=== PATIENT | female | born 1935 | race Hispanic/Latino ===

== ENCOUNTER → 2018-05-03 | Outpatient (CLI) | payer MEDICARE ==
[~2018-05-03] MED LIST: ALENDRONATE SOD70 MG PO; ENALAPRIL MALEA20 MG PO; GABAPENTIN100 MG PO; GLYBURIDE-METF1 EAC1 PO; PANTOPRAZOLE SO40 MG PO; PIOGLITAZONE15 MG PO; SIMVASTATIN20 MG PO
--- NOTE | 2018-05-03 13:01 | Diagnostic Imaging Report ---
EXAMINATION: CHEST 2 VIEWS INDICATION: Cough COMPARISON: Chest radiograph 06/24/2015. FINDINGS: TUBES and LINES: None. LUNGS: Lungs are well inflated. Mild patchy right basilar opacity. No evidence of pulmonary edema. A rounded high density opacity projecting over the right lower lung likely represents overlying rib. PLEURA: No pleural effusion or pneumothorax. HEART AND MEDIASTINUM: Cardiac size is mildly enlarged. There are atherosclerotic calcifications within the aorta. BONES AND SOFT TISSUES: There are degenerative changes in the thoracic spine. UPPER ABDOMEN: No free air under the diaphragm. There are cholecystectomy clips. IMPRESSION: Mild patchy right basilar opacity, which could reflect atelectasis or pneumonia in the appropriate clinical setting. Follow chest radiograph in 6-8 weeks is suggested to assess for resolution. Signed by: Dr. Alyse Ramirez MD on 05/03/2018 1:07 PM
--- NOTE | 2018-05-03 13:09 | Diagnostic Imaging Report ---
EXAM: Bilateral two view radiographs of the hips. INDICATION: Bilateral hip pain COMPARISON: None FINDINGS: No evidence of fracture, malalignment, or soft tissue abnormality. There is diffuse osteopenia. There are moderate left and mild right hip degenerative changes with joint space narrowing and bony osteophyte formation. Mild enthesopathic changes at the left greater trochanter. There are atherosclerotic vascular calcifications. IMPRESSION: No acute osseous abnormality. 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 Signed by: Dr. Alyse Ramirez MD on 05/03/2018 1:05 PM
== END ==
LOC: RAD 11:50
DX: R05 Cough (principal); M25.552 Pain in left hip; M25.551 Pain in right hip
CPT/HCPCS: 71046; 73521

== ENCOUNTER → 2018-05-13 | Outpatient (CLI) | payer MEDICARE ==
--- NOTE | 2018-05-13 14:55 | Diagnostic Imaging Report ---
EXAMINATION: CHEST 2 VIEWS INDICATION: \S\ABNORMAL CHEST XRAY. Fluid in the chest was discovered at doctor's appointment 10 days ago. Congestion. COMPARISON: Chest x-ray 05/03/2018. 06/24/2015. CT abdomen pelvis 11/02/2015. FINDINGS: PA and lateral views TUBES and LINES: None. LUNGS: Lungs are well inflated. Improving bibasilar atelectasis. There still residual airspace opacities in both lung bases. PLEURA: No pleural effusion or pneumothorax. HEART AND MEDIASTINUM: The cardiomediastinal silhouette is unremarkable. BONES AND SOFT TISSUES: No acute osseous lesion. Soft tissues are unremarkable. UPPER ABDOMEN: No free air under the diaphragm. There are cholecystectomy clips. IMPRESSION: Improving bibasilar atelectasis. There are several residual airspace opacities in the lung bases, worrisome for residual atelectasis or pneumonia. Recommend follow-up chest x-ray in 6 -8 weeks. Signed by: Dr. Renard De Paz M.D. on 05/13/2018 2:52 PM
== END ==
LOC: RAD 13:56
DX: R91.8 Other nonspecific abnormal finding of lung field (principal)
CPT/HCPCS: 71046

== ENCOUNTER → 2018-06-21 | Outpatient (CLI) | payer MEDICARE ==
--- NOTE | 2018-06-21 12:03 | Diagnostic Imaging Report ---
EXAMINATION: PA and lateral views of the chest. COMPARISON: May 13, 2018 CLINICAL HISTORY: Follow-up pleural effusion DISCUSSION: Lines/tubes: None. Lungs: The lungs are well inflated. Age-related interstitial change.. No pneumonia or pulmonary edema. Pleura: No pleural effusion or pneumothorax. Heart and mediastinum: The cardiomediastinal silhouette is normal. Bones and soft tissues: No acute bony abnormalities. Remote healed left-sided rib fractures. IMPRESSION: No acute cardiopulmonary abnormalities. Signed by: Dr. Regan Ovalle M.D. on 06/21/2018 11:59 AM
== END ==
LOC: RAD 10:56
DX: J90 Pleural effusion, not elsewhere classified (principal)
CPT/HCPCS: 71046

== ENCOUNTER → 2020-06-01 | Outpatient (CLI) | payer MEDICARE ==
--- NOTE | 2020-06-01 13:45 | Diagnostic Imaging Report ---
Radiographs of the right knee 3 views HISTORY: Pain COMPARISON: None available. FINDINGS: Bones: No acute displaced fracture. Osseous alignment is within normal limits. Joints: Mild tricompartmental degenerative arthrosis. Soft tissues: Soft tissue swelling. Scattered vascular calcification. 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 Signed by: Dr. Trev Ramesh M.D. on 06/01/2020 1:42 PM
== END ==
LOC: RAD 12:59
DX: M25.561 Pain in right knee (principal); W19.XXXA Unspecified fall, initial encounter

== ENCOUNTER 2020-10-26 10:34 | Emergency (ER) | payer MEDICARE ==
[~2020-10-26] VITALS: Ht 157.5 cm; Wt 79.4 kg
[2020-10-26 13:03] VITALS: BP 136/72
== END 2020-10-26 12:50 | disposition home or self-care (01) ==
LOC: ER 11:33
DX: S01.01XA Laceration without foreign body of scalp, initial encounter (principal); W01.0XXA Fall on same level from slipping, tripping and stumbling without subsequent striking against object, initial encounter; Y93.01 Activity, walking, marching and hiking; I10 Essential (primary) hypertension; E11.9 Type 2 diabetes mellitus without complications; E78.5 Hyperlipidemia, unspecified
CPT/HCPCS: 70450; 72125; 99283

== ENCOUNTER → 2021-04-22 | Outpatient (CLI) | payer MEDICARE ==
[~2021-04-22] MED LIST changes: +ALBUTEROL SULF 0.083% NEB SOLN 3 ML NEB ONE
== END ==
LOC: RESP 09:38
PROVIDERS: ATTEND Internal Medicine Critical Care Medicine
DX: R09.02 Hypoxemia (principal); R06.02 Shortness of breath; J18.9 Pneumonia, unspecified organism; G47.33 Obstructive sleep apnea (adult) (pediatric); I10 Essential (primary) hypertension; K21.9 Gastro-esophageal reflux disease without esophagitis; J30.2 Other seasonal allergic rhinitis
CPT/HCPCS: 94060; 94640; 94727; 94729

== ENCOUNTER → 2021-05-04 | Outpatient (CLI) | payer MEDICARE ==
[~2021-05-04] MED LIST changes: -ALBUTEROL SULF 0.083% NEB SOLN 3 ML NEB ONE
== END ==
LOC: CT 14:01
PROVIDERS: ATTEND Internal Medicine Critical Care Medicine
DX: R09.02 Hypoxemia (principal); J18.9 Pneumonia, unspecified organism; R06.02 Shortness of breath; G47.33 Obstructive sleep apnea (adult) (pediatric); I10 Essential (primary) hypertension; K21.9 Gastro-esophageal reflux disease without esophagitis; J30.2 Other seasonal allergic rhinitis
CPT/HCPCS: 71250

== ENCOUNTER → 2021-11-02 | Outpatient (CLI) | payer MEDICARE | LOC: MRI 10:31 | DX: M54.40 Lumbago with sciatica, unspecified side (principal); M81.8 Other osteoporosis without current pathological fracture | CPT/HCPCS: 72148; 77080 ==

== ENCOUNTER → 2022-01-03 | Outpatient (CLI) | payer MEDICARE | LOC: US 14:23 | PROVIDERS: ATTEND Internal Medicine Nephrology | DX: N18.31 Chronic kidney disease, stage 3a (principal) | CPT/HCPCS: 76770; 76857 ==

== ENCOUNTER 2022-04-21 19:01 | Emergency (ER) | payer MEDICARE ==
[~2022-04-21] VITALS: Ht 157.5 cm; Wt 79.4 kg
[2022-04-21 21:27] LABS: CLARITY,URINE CLEAR (CLEAR); COLOR,URINE YELLOW (YELLOW); KETONES,URINE NEGATIVE (NEGATIVE); LEUKOCYTE ESTERASE ,URINE SMALL (NEGATIVE); NITRITE,URINE NEGATIVE (NEGATIVE); PROTEIN,URINE DIPSTICK 2+ (NEGATIVE); URINE UROBILINOGEN 0.2 mg/dL (0.2 - 1)
[2022-04-21 21:54] LABS: BACTERIA,URINE MANY /HPF; EPITHELIAL CELLS,URINE FEW /LPF; RBC,URINE 0-5 /HPF (0-5)
[2022-04-21 21:55] LABS: RENAL EPITHELIAL CELLS,URINE RARE
[2022-04-21 22:09] VITALS: BP 146/70
[2022-04-21] MEDS ORDERED: CEFDINIR300 MG PO (22:10)
== END 2022-04-21 22:13 | disposition home or self-care (01) ==
LOC: ER 19:14
DX: R30.0 Dysuria (principal); N39.0 Urinary tract infection, site not specified; R10.30 Lower abdominal pain, unspecified; I12.9 Hypertensive chronic kidney disease with stage 1 through stage 4 chronic kidney disease, or unspecified chronic kidney disease; E11.22 Type 2 diabetes mellitus with diabetic chronic kidney disease; N18.9 Chronic kidney disease, unspecified; E78.5 Hyperlipidemia, unspecified; M81.8 Other osteoporosis without current pathological fracture
CPT/HCPCS: 81001; 99283

== ENCOUNTER 2022-06-23 14:43 | Inpatient (IN) | payer MEDICARE ==
[~2022-06-23] VITALS: Ht 157.5 cm; Wt 79.4 kg
[~2022-06-23 14:43] MED LIST changes: +CEFDINIR300 MG PO
[2022-06-23 15:22] LABS: BASOPHILS % 0.5 % (0.0-1.0); EOSINOPHILS % 0.4 % (0.0-6.0); HEMATOCRIT 35.8 % (34.2-44.1); HEMOGLOBIN 11.1 g/dL (12.0-16.0); LYMPHOCYTES # (AUTO) 1.8 (1.0-3.2); LYMPHOCYTES % 21.5 % (18.0-39.1); MEAN CORPUSCULAR HEMOGLOBIN 30.7 pg (28-32); MEAN CORPUSCULAR VOLUME 98.9 fL (81-99); MONOCYTES # (AUTO) 0.8 (0.2-0.8); MONOCYTES % 9.2 % (4.4-11.3); NEUTROPHILS # (AUTO) 5.6 (2.1-6.9); NEUTROPHILS % 68.3 % (38.7-80.0); PLATELET COUNT 170 x10e3/uL (140-360); RED BLOOD COUNT 3.62 x10e6/uL (3.6-5.1); RED CELL DISTRIBUTION WIDTH 13.5 % (11.7-14.4)
[2022-06-23] MEDS ORDERED: Vancomycin IV 1 GM in SODIUM CHLORIDE 0.9% 250ML 250 ML IV ONE (15:30)
[2022-06-23 15:40] LABS: ALBUMIN 3.2 g/dL (3.5-5.0); ALBUMIN/GLOBULIN RATIO 0.8 (0.8-2.0); ANION GAP 14.7 mmol/L (8-16); CALCIUM 8.2 mg/dL (8.4-10.2); CREATININE, SERUM 1.29 mg/dL (0.57-1.11); POTASSIUM 4.7 mmol/L (3.5-5.1)
[2022-06-23 16:01] LABS: CREATINE KINASE MB 1.6 ng/mL (0-5.0)
[2022-06-23] MEDS ORDERED: FUROSEMIDE INJ 10 MG/ML 4 ML VIAL IV ONE (17:15)
[2022-06-23] MEDS: ALBUTEROL SULF 0.083% NEB SOLN 3 ML NEB NEB SCH ×2 (17:36→23:05)
[2022-06-23 17:49] LABS: CLARITY,URINE CLEAR (CLEAR); COLOR,URINE YELLOW (YELLOW); KETONES,URINE NEGATIVE (NEGATIVE); LEUKOCYTE ESTERASE ,URINE NEGATIVE (NEGATIVE); NITRITE,URINE NEGATIVE (NEGATIVE); PROTEIN,URINE DIPSTICK 2+ (NEGATIVE); URINE UROBILINOGEN 0.2 mg/dL (0.2 - 1)
[2022-06-23] MEDS: OSELTAMIVIR PHOSPHATE 75 MG CAP PO SCH (17:52)
[2022-06-23 18:04] LABS: RBC,URINE 0-5 /HPF (0-5); WBC,URINE (MAN) 0-5 /HPF (0-5)
[2022-06-23 18:05] LABS: BACTERIA,URINE RARE /HPF; EPITHELIAL CELLS,URINE FEW /LPF
[2022-06-23 20:00] VITALS: BP 120/47
[2022-06-23 20:02] VITALS: BP 120/47
[2022-06-23 20:05] VITALS: BP 120/47
[2022-06-23] MEDS ORDERED: METOPROLOL TART25 MG PO (20:58)
[2022-06-23] MEDS ORDERED: TRESIBA100 UNIT/1 (20:58)
[2022-06-23] MEDS ORDERED: GLIMEPIRIDE2 MG PO (20:58)
[2022-06-23] MEDS ORDERED: AMLODIPINE BESY10 MG PO (20:58)
[2022-06-24] VITALS (7 sets, daily range): BP systolic 104–150; BP diastolic 40–54
[2022-06-24] MEDS: ALBUTEROL SULF 0.083% NEB SOLN 3 ML NEB NEB SCH ×5 (03:10→19:20)
[2022-06-24 06:43] LABS: BASOPHILS % 0.5 % (0.0-1.0); EOSINOPHILS # (AUTO) 0.1 (0.0-0.4); EOSINOPHILS % 1.4 % (0.0-6.0); HEMATOCRIT 34.4 % (34.2-44.1); LYMPHOCYTES # (AUTO) 1.7 (1.0-3.2); LYMPHOCYTES % 20.5 % (18.0-39.1); MEAN CORPUSCULAR HEMOGLOBIN 30.8 pg (28-32); MEAN CORPUSCULAR VOLUME 96.4 fL (81-99); MONOCYTES # (AUTO) 0.8 (0.2-0.8); MONOCYTES % 9.4 % (4.4-11.3); NEUTROPHILS # (AUTO) 5.7 (2.1-6.9); PLATELET COUNT 163 x10e3/uL (140-360); RED BLOOD COUNT 3.57 x10e6/uL (3.6-5.1); RED CELL DISTRIBUTION WIDTH 13.4 % (11.7-14.4)
[2022-06-24 07:11] LABS: ALBUMIN/GLOBULIN RATIO 0.8 (0.8-2.0); ANION GAP 15.5 mmol/L (8-16); CALCIUM 8.1 mg/dL (8.4-10.2); CREATININE, SERUM 1.31 mg/dL (0.57-1.11); POTASSIUM 4.5 mmol/L (3.5-5.1)
[2022-06-24] MEDS ORDERED: ACTOS15 MG PO (07:45)
[2022-06-24] MEDS ORDERED: AMLODIPINE BESY10 MG PO (07:45)
[2022-06-24] MEDS ORDERED: TRELEGY ELLIPT1 EACH PO (07:45)
[2022-06-24] MEDS ORDERED: RENA-VITE RX T1 EACH PO (07:45)
[2022-06-24] MEDS ORDERED: SIMVASTATIN40 MG PO (07:56)
[2022-06-24] MEDS ORDERED: GLIMEPIRIDE2 MG PO (07:56)
[2022-06-24] MEDS ORDERED: ENALAPRIL MALEA20 MG PO (07:56)
[2022-06-24] MEDS ORDERED: CALCIUM CARBON500 MG PO (07:56)
[2022-06-24] MEDS ORDERED: LASIX20 MG PO (07:56)
[2022-06-24] MEDS ORDERED: [UNRECOGNIZED DRUG - OTHER] PO (07:56)
[2022-06-24] MEDS ORDERED: METOPROLOL TART25 MG PO (07:56)
[2022-06-24] MEDS ORDERED: POLYETHYLENE GLYCOL 3350 17 GM PACK PO PRN (08:45)
[2022-06-24] MEDS ORDERED: ACETAMINOPHEN 325 MG TAB PO PRN (08:45)
[2022-06-24] MEDS ORDERED: HYDRALAZINE HCL 20 MG/ML VIAL IV PRN (08:45)
[2022-06-24] MEDS: OSELTAMIVIR PHOSPHATE 75 MG CAP PO SCH ×2 (08:46→17:33)
[2022-06-24] MEDS ORDERED: NON-FORMULARY MEDICATION (Fluticasone/Umeclidin/Vilanter (Trelegy Ellipta 100-62.5-25) 1 I PO SCH (09:00)
[2022-06-24] MEDS ORDERED: METFORMIN HCL PO SCH (09:00)
[2022-06-24] MEDS ORDERED: NON-FORMULARY MEDICATION (Vit B Cmplx 3/Fa/Vit C/Biotin (Rena-Vite Rx Tablet) 1 TAB) PO SCH (09:00)
[2022-06-24] MEDS ORDERED: ENALAPRIL MALEATE 10 MG PO SCH (09:00)
[2022-06-24] MEDS ORDERED: GLYBURIDE PO SCH (09:00)
[2022-06-24] MEDS: OYST-CAL-D 500MG TABLET PO SCH (09:41)
[2022-06-24] MEDS: METOPROLOL TARTRATE 25 MG TAB PO SCH ×2 (09:46→17:33)
[2022-06-24] MEDS: DOCUSATE SODIUM 100 MG CAP PO SCH ×2 (09:47→17:31)
[2022-06-24] MEDS: GUAIFENESIN 600MG/DEXTROMETHORPHAN 30MG TABSR PO SCH ×2 (09:47→17:31)
[2022-06-24] MEDS: AMLODIPINE BESYLATE 10 MG TAB PO SCH (09:47)
[2022-06-24] MEDS: FAMOTIDINE 20 MG TAB PO SCH ×2 (09:49→17:31)
[2022-06-24] MEDS: GLIMEPIRIDE 2 MG TAB PO SCH ×2 (13:42→17:31)
[2022-06-24 15:06] LABS: CREATINE KINASE MB 1.8 ng/mL (0-5.0)
[2022-06-24] MEDS: SIMVASTATIN 40 MG TAB PO SCH (21:24)
[2022-06-25] VITALS: BP 117/40
[2022-06-25] MEDS: ALBUTEROL SULF 0.083% NEB SOLN 3 ML NEB NEB SCH ×6 (03:10→19:05)
[2022-06-25 04:00] VITALS: BP 122/38
[2022-06-25 06:05] LABS: BASOPHILS % 0.5 % (0.0-1.0); EOSINOPHILS # (AUTO) 0.2 (0.0-0.4); EOSINOPHILS % 2.9 % (0.0-6.0); HEMATOCRIT 32.2 % (34.2-44.1); HEMOGLOBIN 10.4 g/dL (12.0-16.0); LYMPHOCYTES # (AUTO) 2.3 (1.0-3.2); LYMPHOCYTES % 40.2 % (18.0-39.1); MEAN CORPUSCULAR HEMOGLOBIN 30.8 pg (28-32); MEAN CORPUSCULAR HGB CONC 32.3 g/dL (31-35); MEAN CORPUSCULAR VOLUME 95.3 fL (81-99); MONOCYTES # (AUTO) 0.5 (0.2-0.8); MONOCYTES % 9.2 % (4.4-11.3); NEUTROPHILS # (AUTO) 2.7 (2.1-6.9); NEUTROPHILS % 46.7 % (38.7-80.0); PLATELET COUNT 157 x10e3/uL (140-360); RED BLOOD COUNT 3.38 x10e6/uL (3.6-5.1); RED CELL DISTRIBUTION WIDTH 13.3 % (11.7-14.4)
[2022-06-25 06:27] LABS: CREATINE KINASE MB 1.9 ng/mL (0-5.0)
[2022-06-25] MEDS: TRELEGY ELLIPTA PO SCH (06:47)
[2022-06-25 06:56] LABS: ALBUMIN 2.8 g/dL (3.5-5.0); ALBUMIN/GLOBULIN RATIO 0.8 (0.8-2.0); ANION GAP 16.3 mmol/L (8-16); CALCIUM 7.7 mg/dL (8.4-10.2); CHOL/HDL RATIO 3.3 (3.0-3.6); CREATININE, SERUM 1.96 mg/dL (0.57-1.11); MAGNESIUM 1.9 MG/DL (1.3-2.1); PHOSPHORUS 5.3 MG/DL (2.3-4.7); POTASSIUM 4.3 mmol/L (3.5-5.1)
[2022-06-25 07:16] LABS: THYROID STIMULATING HORMONE 2.401 uIU/mL (0.350-4.940)
[2022-06-25 08:00] VITALS: BP 122/38
[2022-06-25] MEDS: MEROPENEM 1 GM in SODIUM CHLORIDE 0.9% 100 ML IV SCH (08:30)
[2022-06-25] MEDS: FAMOTIDINE 20 MG TAB PO SCH ×2 (08:32→18:47)
[2022-06-25] MEDS: GLIMEPIRIDE 2 MG TAB PO SCH ×2 (08:32→18:49)
[2022-06-25] MEDS: ENALAPRIL MALEATE 10 MG TAB PO SCH (08:33)
[2022-06-25] MEDS: OSELTAMIVIR PHOSPHATE 75 MG CAP PO SCH ×2 (08:35→18:48)
[2022-06-25] MEDS: METOPROLOL TARTRATE 25 MG TAB PO SCH ×2 (08:35→18:48)
[2022-06-25] MEDS: GUAIFENESIN 600MG/DEXTROMETHORPHAN 30MG TABSR PO SCH ×2 (08:35→18:49)
[2022-06-25] MEDS: FOLIC ACID/CYANOCOB/PYRIDOXINE TAB PO SCH (08:35)
[2022-06-25] MEDS: OYST-CAL-D 500MG TABLET PO SCH (08:36)
[2022-06-25] MEDS: AMLODIPINE BESYLATE 10 MG TAB PO SCH (08:37)
[2022-06-25] MEDS: DOCUSATE SODIUM 100 MG CAP PO SCH ×2 (08:37→18:46)
[2022-06-25 08:57] VITALS: BP 119/75
[2022-06-25 14:06] LABS: CREATINE KINASE MB 2.3 ng/mL (0-5.0)
[2022-06-25 14:19] VITALS: BP 122/55
[2022-06-25] MEDS ORDERED: LACTATED RINGER'S 1,000 ML INJ ONE (14:45)
[2022-06-25] MEDS ORDERED: TRAMADOL HCL 50 MG TAB PO PRN (15:45)
[2022-06-25 20:00] VITALS: BP 142/56
[2022-06-25] MEDS: SIMVASTATIN 40 MG TAB PO SCH (20:03)
[2022-06-26] VITALS (8 sets, daily range): BP systolic 125–138; BP diastolic 41–57
[2022-06-26] MEDS: ALBUTEROL SULF 0.083% NEB SOLN 3 ML NEB NEB SCH ×7 (00:05→23:50)
[2022-06-26] MEDS: ONDANSETRON HCL INJ 2MG/ML 2ML 2 MG/ML VIAL IV PRN ×3 (00:46→11:00)
[2022-06-26] MEDS: MEROPENEM 1 GM in SODIUM CHLORIDE 0.9% 100 ML IV SCH ×3 (00:49→19:55)
[2022-06-26] MEDS: TRELEGY ELLIPTA PO SCH (05:26)
[2022-06-26 06:16] LABS: BASOPHILS % 0.7 % (0.0-1.0); EOSINOPHILS % 0.2 % (0.0-6.0); HEMATOCRIT 34.5 % (34.2-44.1); HEMOGLOBIN 11.1 g/dL (12.0-16.0); LYMPHOCYTES # (AUTO) 1.5 (1.0-3.2); LYMPHOCYTES % 24.8 % (18.0-39.1); MEAN CORPUSCULAR HEMOGLOBIN 30.8 pg (28-32); MEAN CORPUSCULAR HGB CONC 32.2 g/dL (31-35); MEAN CORPUSCULAR VOLUME 95.8 fL (81-99); MONOCYTES # (AUTO) 0.4 (0.2-0.8); MONOCYTES % 6.2 % (4.4-11.3); NEUTROPHILS # (AUTO) 4.1 (2.1-6.9); PLATELET COUNT 180 x10e3/uL (140-360); RED CELL DISTRIBUTION WIDTH 13.2 % (11.7-14.4)
[2022-06-26 07:17] LABS: ALBUMIN 3.2 g/dL (3.5-5.0); ALBUMIN/GLOBULIN RATIO 0.8 (0.8-2.0); ANION GAP 14.9 mmol/L (8-16); CALCIUM 8.1 mg/dL (8.4-10.2); CREATININE, SERUM 1.62 mg/dL (0.57-1.11); POTASSIUM 4.9 mmol/L (3.5-5.1)
[2022-06-26] MEDS: ENALAPRIL MALEATE 10 MG TAB PO SCH (08:47)
[2022-06-26] MEDS: PIOGLITAZONE HCL 15 MG TAB PO SCH (08:47)
[2022-06-26] MEDS: FAMOTIDINE 20 MG TAB PO SCH ×2 (08:48→16:19)
[2022-06-26] MEDS: DOCUSATE SODIUM 100 MG CAP PO SCH ×2 (08:48→16:21)
[2022-06-26] MEDS: FOLIC ACID/CYANOCOB/PYRIDOXINE TAB PO SCH (08:48)
[2022-06-26] MEDS: OYST-CAL-D 500MG TABLET PO SCH (08:48)
[2022-06-26] MEDS: AMLODIPINE BESYLATE 10 MG TAB PO SCH (08:48)
[2022-06-26] MEDS: GLIMEPIRIDE 2 MG TAB PO SCH ×2 (08:49→16:20)
[2022-06-26] MEDS: METOPROLOL TARTRATE 25 MG TAB PO SCH ×2 (08:49→16:20)
[2022-06-26] MEDS: OSELTAMIVIR PHOSPHATE 75 MG CAP PO SCH ×2 (08:49→16:20)
[2022-06-26] MEDS: GUAIFENESIN 600MG/DEXTROMETHORPHAN 30MG TABSR PO SCH ×2 (08:49→16:19)
[2022-06-26] MEDS: SIMVASTATIN 40 MG TAB PO SCH (20:07)
[2022-06-27] VITALS (8 sets, daily range): BP systolic 119–142; BP diastolic 33–90
[2022-06-27] MEDS: ALBUTEROL SULF 0.083% NEB SOLN 3 ML NEB NEB SCH ×6 (03:01→22:46)
[2022-06-27] MEDS: TRELEGY ELLIPTA PO SCH (06:00)
[2022-06-27 06:12] LABS: ANION GAP 11.8 mmol/L (8-16); CALCIUM 7.7 mg/dL (8.4-10.2); CREATININE, SERUM 1.37 mg/dL (0.57-1.11); POTASSIUM 4.8 mmol/L (3.5-5.1)
[2022-06-27] MEDS: OSELTAMIVIR PHOSPHATE 75 MG CAP PO SCH ×2 (08:49→16:53)
[2022-06-27] MEDS: OYST-CAL-D 500MG TABLET PO SCH (08:50)
[2022-06-27] MEDS: PIOGLITAZONE HCL 15 MG TAB PO SCH (08:50)
[2022-06-27] MEDS: FOLIC ACID/CYANOCOB/PYRIDOXINE TAB PO SCH (08:50)
[2022-06-27] MEDS: GUAIFENESIN 600MG/DEXTROMETHORPHAN 30MG TABSR PO SCH ×2 (08:50→16:54)
[2022-06-27] MEDS: ENALAPRIL MALEATE 10 MG TAB PO SCH (08:51)
[2022-06-27] MEDS: AMLODIPINE BESYLATE 10 MG TAB PO SCH (08:51)
[2022-06-27] MEDS: FAMOTIDINE 20 MG TAB PO SCH ×2 (08:51→16:54)
[2022-06-27] MEDS: DOCUSATE SODIUM 100 MG CAP PO SCH ×2 (08:51→16:54)
[2022-06-27] MEDS: METOPROLOL TARTRATE 25 MG TAB PO SCH ×2 (08:52→16:54)
[2022-06-27] MEDS: MEROPENEM 1 GM in SODIUM CHLORIDE 0.9% 100 ML IV SCH ×2 (08:52→16:53)
[2022-06-27] MEDS: GLIMEPIRIDE 2 MG TAB PO SCH ×2 (08:53→16:54)
[2022-06-27] MEDS: SIMVASTATIN 40 MG TAB PO SCH (20:51)
[2022-06-28 00:13] VITALS: BP 131/47
[2022-06-28] MEDS: ALBUTEROL SULF 0.083% NEB SOLN 3 ML NEB NEB SCH ×4 (04:32→15:10)
[2022-06-28 05:19] VITALS: BP 115/65
[2022-06-28 05:45] LABS: ANION GAP 10.8 mmol/L (8-16); CALCIUM 8.3 mg/dL (8.4-10.2); CREATININE, SERUM 1.09 mg/dL (0.57-1.11); POTASSIUM 4.8 mmol/L (3.5-5.1)
[2022-06-28] MEDS: TRELEGY ELLIPTA PO SCH (06:00)
[2022-06-28 08:13] VITALS: BP 150/55
[2022-06-28] MEDS: FOLIC ACID/CYANOCOB/PYRIDOXINE TAB PO SCH (08:14)
[2022-06-28] MEDS: PIOGLITAZONE HCL 15 MG TAB PO SCH (08:15)
[2022-06-28] MEDS: OYST-CAL-D 500MG TABLET PO SCH (08:16)
[2022-06-28] MEDS: DOCUSATE SODIUM 100 MG CAP PO SCH ×2 (08:17→16:47)
[2022-06-28] MEDS: OSELTAMIVIR PHOSPHATE 75 MG CAP PO SCH ×2 (08:17→16:47)
[2022-06-28] MEDS: GUAIFENESIN 600MG/DEXTROMETHORPHAN 30MG TABSR PO SCH ×2 (08:18→16:48)
[2022-06-28] MEDS: FAMOTIDINE 20 MG TAB PO SCH ×2 (08:19→16:46)
[2022-06-28] MEDS: MEROPENEM 1 GM in SODIUM CHLORIDE 0.9% 100 ML IV SCH (08:21)
[2022-06-28] MEDS: ENALAPRIL MALEATE 10 MG TAB PO SCH (08:39)
[2022-06-28] MEDS: AMLODIPINE BESYLATE 10 MG TAB PO SCH (08:39)
[2022-06-28] MEDS: GLIMEPIRIDE 2 MG TAB PO SCH ×2 (08:50→16:48)
[2022-06-28] MEDS ORDERED: SODIUM CHLORIDE 0.9% 100 ML ONE (08:50)
[2022-06-28] MEDS: METOPROLOL TARTRATE 25 MG TAB PO SCH ×2 (08:51→16:51)
[2022-06-28] MEDS ORDERED: SODIUM CHLORIDE FLUSH 10 ML SYR IV SCH (09:00)
[2022-06-28] MEDS ORDERED: AZITHROMYCIN 250 MG TAB PO SCH (09:00)
[2022-06-28 09:37] VITALS: BP 150/55
[2022-06-28] MEDS ORDERED: ONDANSETRON HCL 4 MG ORAL DISINTEGRATING TAB PO PRN (10:45)
[2022-06-28 12:22] VITALS: BP 136/59
[2022-06-28 16:27] VITALS: BP 137/49
[2022-07-08] MEDS ORDERED: ALENDRONATE SODIUM 70 MG TAB PO SCH (06:00)
== END 2022-06-28 17:17 | DRG 871 ==
LOC: ER 15:30 → ERHOLD 17:10 → MED/SURG2 20:03
PROC: 3E03329 Introduction of Other Anti-infective into Peripheral Vein, Percutaneous Approach (ICD-10-PCS; 2022-06-23)
PROC: 02HV33Z Insertion of Infusion Device into Superior Vena Cava, Percutaneous Approach (ICD-10-PCS; principal; 2022-06-25)
DX: A41.89 Other specified sepsis (principal); J10.08 Influenza due to other identified influenza virus with other specified pneumonia; J18.0 Bronchopneumonia, unspecified organism; N17.0 Acute kidney failure with tubular necrosis; J96.01 Acute respiratory failure with hypoxia; N39.0 Urinary tract infection, site not specified; Z16.12 Extended spectrum beta lactamase (ESBL) resistance; E11.22 Type 2 diabetes mellitus with diabetic chronic kidney disease; B96.1 Klebsiella pneumoniae [K. pneumoniae] as the cause of diseases classified elsewhere; R65.20 Severe sepsis without septic shock; I13.10 Hypertensive heart and chronic kidney disease without heart failure, with stage 1 through stage 4 chronic kidney disease, or unspecified chronic kidney disease; E11.69 Type 2 diabetes mellitus with other specified complication; N18.31 Chronic kidney disease, stage 3a; E78.5 Hyperlipidemia, unspecified; Z90.49 Acquired absence of other specified parts of digestive tract; Z88.5 Allergy status to narcotic agent; E66.9 Obesity, unspecified; Z68.32 Body mass index [BMI] 32.0-32.9, adult; M81.0 Age-related osteoporosis without current pathological fracture; Z82.49 Family history of ischemic heart disease and other diseases of the circulatory system; Z20.822 Contact with and (suspected) exposure to COVID-19
CPT/HCPCS: 36415; 36569; 71045; 80048; 80053; 80061; 81001; 82550; 82553; 82948; 83036; 83605; 83735; 83880; 84100; 84443; 84484; 85025; 87040; 87086; 87186; 93005; 94640; 94799; 96360; 99284; J0456; J0692; J0696; J1940; J2185; J2405; J3370; J7050; J7121

== ENCOUNTER → 2024-03-14 | Outpatient (REF) | payer MEDICARE ==
[~2024-03-14] MED LIST changes: +ACETAMINOPHEN325 M1 PO; +ACTOS15 MG PO; +AMLODIPINE BESY10 MG PO; +AMLODIPINE BESYL5 MG PO; +ASPIRIN EC81 MG PO; +ATORVASTATIN CA20 MG PO; +CALCIUM CARBON500 MG PO; +CARVEDILOL3.125 MG PO; +GLIMEPIRIDE2 MG PO; +JANUVIA50 MG PO; +JARDIANCE10 MG PO; +LASIX20 MG PO; +METOPROLOL TART25 MG PO; +RENA-VITE RX T1 EACH PO; +SIMVASTATIN40 MG PO; +TRELEGY ELLIPT1 EACH PO; +TRESIBA100 UNIT/1; +VASOTEC10 MG PO; +VELTASSA8.4 GM PO; +[UNRECOGNIZED DRUG - OTHER] PO
== END ==
LOC: EDSTATUS 11:00 → MRI 11:29
PROVIDERS: ATTEND Family Medicine Adult Medicine
DX: S22.000A Wedge compression fracture of unspecified thoracic vertebra, initial encounter for closed fracture (principal)
CPT/HCPCS: 72146

== ENCOUNTER → 2024-04-16 | Outpatient (REF) | payer MEDICARE | LOC: DX 09:36 | PROVIDERS: ATTEND Family Medicine Adult Medicine | DX: M81.0 Age-related osteoporosis without current pathological fracture (principal) | CPT/HCPCS: 77080 ==

== ENCOUNTER 2025-01-31 18:04 | Emergency (ER) | payer MEDICARE ==
[~2025-01-31] VITALS: Ht 152.4 cm; Wt 80.7 kg
[2025-01-31] MEDS ORDERED: MUPIROCIN22 GM TOP (18:49)
[2025-01-31 19:12] VITALS: PULSE 54; RESP 16; TEMP 98.4; O2SAT 94
== END 2025-01-31 19:31 | disposition home or self-care (01) ==
LOC: ER 18:44
DX: L03.317 Cellulitis of buttock (principal); I12.9 Hypertensive chronic kidney disease with stage 1 through stage 4 chronic kidney disease, or unspecified chronic kidney disease; E11.22 Type 2 diabetes mellitus with diabetic chronic kidney disease; N18.9 Chronic kidney disease, unspecified; I50.9 Heart failure, unspecified; E78.5 Hyperlipidemia, unspecified; M81.0 Age-related osteoporosis without current pathological fracture
CPT/HCPCS: 99283